=== PATIENT | female | born 1975 | race Caucasian/White ===

== ENCOUNTER 2016-11-18 18:15 | Emergency (ER) | payer OTHER ==
[~2016-11-18] VITALS: Ht 170.2 cm; Wt 136.4 kg
[2016-11-18 18:21] VITALS: BP 132/74; PULSE 102; RESP 16; O2SAT 99
[2016-11-18 19:30] LABS: BASOPHILS % (AUTO) 0.3 % (0-3); EOSINOPHILS % (AUTO) 2.3 % (0-5); Mean Corpuscular Hemoglobin 28.1 pg (27.0-35.0); Mean Corpuscular Volume 85.1 fL (81-100); NEUTROPHILS % (AUTO) 54.7 % (40-74); Platelet Count 290 bil/L (150-400)
[2016-11-18 19:51] LABS: Magnesium 1.8 mg/dL (1.6-2.6)
--- NOTE | 2016-11-18 20:26 | DRSVH ---
PROCEDURE: X-RAY ACUTE ABDOMINAL SERIES ([id number]) INDICATIONS: pain TECHNIQUE: One view chest and two views of the abdomen were acquired. COMPARISON: None. FINDINGS: Surgical changes and devices: Cervical fixation hardware is grossly intact. Surgical clip is projecte d over the left sacral ala. Chest: Lungs are clear. Heart size is normal. No pleural effusions. No pneumoperitoneum. Abdomen: Bowel gas pattern is normal. No suspicious calcifications. Visualized solid organ contour s appear normal. Bones: No suspicious bony lesions. IMPRESSION: No acute cardiopulmonary or intra-abdominal findings. Dictated by: Edwina Painter M.D. on 11/18/2016 at 20:23 Approved by: Edwina Painter M.D. on 11/18/2016 at 20:24
--- NOTE | 2016-11-18 21:02 | ED.REPORT ---
HPI-Abd Pain F 40 and Over Date of Service Nov 18, 2016 ED Provider: Dr. Mitesh Jimenez M.D. A 41 year old female with a medical history including ventral hernia and diverticulitis s/p colon resection presents to the ED with lower abdominal pain onset two weeks ago. The pain is exacerbated with laying down and eating and has gradually worsened since onset, with radiation across her abdomen. Associated symptoms include nausea, vomiting, foul-smelling belches, and chills. No groundwater/Giardia exposure. The patient denies diarrhea, constipation, melena, or hematochezia. She has been treated as an outpatient since onset with Cipro and Flagyl for diverticulitis. Nursing Notes Stated Complaint: DIVERTICULITIS-SENT BY Chief Complaint: Female Abdominal Pain Nursing Notes Reviewed: Yes Allergies: Coded Allergies: morphine (Verified Allergy, Severe, delirium, 11/18/16) ertapenem (Verified Allergy, Intermediate, migraine, 11/18/16) Scheduled Omeprazole (Omeprazole) 20 Mg Tablet.dr 20 MG PO BID Ondansetron ODT (Ondansetron ODT) 8 Mg Tab.rapdis 8 MG PO QID Scheduled PRN oxyCODONE-Acetaminophen 5-325 mg (oxyCODONE-Acetaminophen 5-325 mg) 1 Each Tablet 1-2 TAB PO Q6H PRN PRN For Pain General Time Seen by MD: 21:01 Chief Complaint Abdominal pain Hx Obtained From: Patient Arrived By: Walk-in Sudden in Onset?: Yes Onset Occurred: More than a week ago... (2 weeks) Symptom Duration: Since onset Progression since Onset: Gradually worsening Location: : Abdomen lower Quality: Painful Severity: Current: Moderate Severity: Maximum: Moderate Associated with: Reports: Nausea, Vomiting, Denies: Fever, Hematochezia, Melena Exacerbated by: Eating, Supine Pertinent Negative: Relieved by nothing Context Related History: Reports: Abdominal surgery, Diverticulosis Recent Healthcare: Recent doctor visit Similar Sx Previous: Yes Past Medical History Past Medical History Diverticulitis Ventral hernia Past Surgical History Ventral hernia repair with mesh Colon resection with colostomy Take down of colostomy Smoking History Unknown if Ever Smoker Social History Other Social History: Good social support, Ambulatory Status Independent Review of Systems + Foul smelling belches Constitutional: Reports: Chills, Denies: Fever Respiratory: Denies: Non-productive cough, Shortness of breath GI: Reports: Abdominal pain (Lower), Nausea, Vomiting, Denies: Constipation, Diarrhea, Hematochezia, Melena Complete sys rev & neg: except as marked. Physical Exam Vital Signs Vital Signs (First) Date Time Temp Pulse Resp B/P Pulse Ox O2 Delivery O2 Flow Rate FiO2 11/18/16 18:21 36.2 102 16 132/74 99 11/18/16 21:03 Room Air 11/18/16 23:23 2 Initial VS: Reviewed Head / Eyes: Atraumatic, Normocephalic ENT: Conjunctiva normal, No scleral icterus Neck: Supple, Full range of motion Extremities: Vascular intact, Neuro intact, No swelling Skin: Warm, Dry, No cyanosis Neurologic: Alert, Oriented, Nonfocal Psychiatric: Mood/affect normal, Behavior normal, Normal thought content General/Constitutional: Awake, Alert, No acute distress Distress / Hydration: Positive: Dehydration mild Appearance / Presentation: Positive: Obese, morbidly Respiratory / Chest: Breath sounds NL, Breath sounds = bilat, No respiratory distress Cardiovascular: Heart rate NL, Regular rhythm, Heart sounds NL Abdomen: Soft Tenderness/Guarding/Rebound: Positive: Tender epigastric Mildly tender under ribs bilaterally Obese Interpretation & Diagnostics US GALLBLADDER: CONCLUSION: No specific acute abnormality. There is borderline dilation of the common bile duct with mild distention of the gallbladder. Correlate with laboratory data to determine if further evaluation is indicated. Transmitted to ED by radiologist Miguel Oviedo M.D. at 11/19/2016 - 12:36:01 AM [facility] Lab Results Interpretation Result Diagram: 11/18/16192111/18/161921 Test 11/18/16 19:22 11/18/16 23:51 White Blood Count 12.3th/mm3 (3.8-10.1) Red Blood Count 5.45mil/mm3 (3.90-5.20) Hemoglobin 15.3g/dL (12.0-15.6) Hematocrit 46.4% (35.0-46.0) Mean Corpuscular Volume 85.1fL (81-100) Mean Corpuscular Hemoglobin 28.1pg (27.0-35.0) Mean Corpuscular Hemoglobin Concent 33.0% (32.0-37.0) Red Cell Distribution Width 13.2% (12.3-15.4) Platelet Count 290bil/L (150-400) Neutrophils (%) (Auto) 54.7% (40-74) Lymphocytes (%) (Auto) 33.5% (14-46) Monocytes (%) (Auto) 9.0% (4-12) Eosinophils (%) (Auto) 2.3% (0-5) Basophils (%) (Auto) 0.3% (0-3) Sodium Level 139mEq/L (134-144) Potassium Level 4.7mEq/L (3.5-5.2) Chloride Level 99mEq/L (97-108) Carbon Dioxide Level 28mmol/L (18-29) Blood Urea Nitrogen 14mg/dL (6-24) Creatinine 0.73mg/dL (0.57-1.00) Estimat Glomerular Filtration Rate 125mL/min (>59) Glucose Level 95mg/dL (60-99) Calcium Level 9.3mg/dL (8.5-10.1) Magnesium Level 1.8mg/dL (1.6-2.6) Total Bilirubin 0.2mg/dL (0.0-1.2) Aspartate Amino Transf (AST/SGOT) 21U/L (0-50) Alanine Aminotransferase (ALT/SGPT) 22U/L (0-32) Alkaline Phosphatase 57U/L (25-150) Total Protein 7.7g/dL (6.4-8.4) Albumin 3.7g/dL (3.4-5.0) Lipase 158U/L (13-60) Hold Gutierrez Top Tube Received (Received) Urine Color Yellow (YELLOW) Urine Appearance Clear (CLEAR,HAZY) Urine pH 6.0 (5.0-8.0) Urine Specific [place] 1.010 (1.003-1.035) Urine Protein Negativemg/dL (NEG,TRACE) Urine Glucose (UA) Negativemg/dL (NEGATIVE) Urine Ketones Negativemg/dL (NEGATIVE) Urine Occult Blood Negative (NEGATIVE) Urine Nitrite Negative (NEGATIVE) Urine Bilirubin Negative (NEGATIVE) Urine Urobilinogen Normalmg/dL (NORMAL) Urine Leukocyte Esterase Negative (NEGATIVE) Urine RBC 0-2/hpf (0-2) Urine WBC 0-5/hpf (0-5) Urine Epithelial Cells Moderate/hpf (NONE-MOD) Urine Crystals None seen (NONE SEEN) Urine Bacteria Few/hpf (NONE-FEW) Urine Hyaline Casts None/lpf (NONE) Urine Granular Casts None seen (NONE SEEN) Urine Waxy Casts None seen (NONE SEEN) Urine Red Blood Cell Casts None seen (NONE SEEN) Urine White Blood Cell Casts None seen (NONE SEEN) Urine Mucus Present (None Seen) Urine Trichomonas None seen (NONE SEEN) Urine Yeast None (NONE SEEN) Urinalysis Comment None Urine Culture Reflexed Not indicated Hold Urine Received (Received) X-Ray Abdominal Interpretation ACUTE ABDOMINAL SERIES: IMPRESSION: No acute cardiopulmonary or intra-abdominal findings. Dictated by: Edwina Painter M.D. on 11/18/2016 at 20:23 Interpretation / Wet Read by: Interpret - Radiologist CT Abd / Pelvis Interpretation CONCLUSION: No specific acute abnormality. Mild diverticulosis. Transmitted to ED by Miguel Oviedo M.D. at 11/18/2016 - 10:47:02 PM PST Study type: Abdominal CT IV contrast Interpretation / Wet Read by: Interpret - Radiologist Re-Eval/Medical Decision Med Decision/Clinical Course 41-year-old presents with abdominal discomfort initially interpreted as diverticulitis. CT today shows no evidence of diverticulitis despite her increasing pain. She has elevated lipase at 157. Remainder of LFTs are unremarkable. CT shows no pseudocyst or other signs of severe pancreatitis. Ultrasound was obtained and no gallstones seen and no obstruction seen. Bile duct prominent without obvious obstructing stone. Discharge now for home care with Percocet and Zofran and omeprazole clear liquid slow progressive diet and follow up with PCP. Re-Evaluation/Progress : Time of Eval: 01:55 Patient Status: Condition improved Re-Evaluation/Progress Note: Discussed with patient x-ray, CT, US, and lab results, diagnosis, and plan for discharge. Follow-up and return to the ER instructions given. Patient agrees with plan for care and all questions were addressed. Counseled Regarding: Diagnosis, Lab results, Need for follow-up, When/why to return to ED Discharge & Departure Shift Change Sign-Out Response to Therapy: Improved Primary Impression: Pancreatitis Chronicity: acute Pancreatitis type: unspecified pancreatitis type Qualified Code: K85.9 - Acute pancreatitis, unspecified Disposition: Home Discharge Condition All VS Reviewed: Yes Condition: Improved Patient Instructions: Clear Liquid Diet (ED), Low Fat Diet (ED), Pancreatitis ( ED) Additional Instructions: Stop your antibiotics. Start omeprazole twice daily. Clear liquids only. Pedialyte would be the best choice. Gatorade or similar electrolyte replacement fluids are also acceptable. Advance slowly through light soupy foods, and slowly add starches. Avoid fats for at least two weeks. Avoid meat and butter and creamy items for several weeks. Absolute no alcohol for two months minimum. Moderate your caffeine intake to a cup of coffee daily. Percocet sparingly for pain. Zofran up to four times daily if needed for nausea. Return if pain is worse despite treatment. Return if you are unable control vomiting or have any other new symptoms of concern. Referrals: OTHER,PHYSICIAN (PCP) Scribe Attestation Portions of this note were transcribed by Liz Choi. I, Dr. Jimenez, personally performed the history, physical exam, and medical decision-making; I reviewed and confirmed the accuracy of the information in the transcribed note. Signed by: Ange Bahena, 11/19/2016, 02:25 Mitesh Jimenez MD Nov 18, 2016 21:01 LIZ CHOI Nov 18, 2016 22:21
[2016-11-18 21:03] VITALS: BP 107/50; PULSE 87; O2SAT 92
[2016-11-18] MEDS ORDERED: Ondansetron 2 mg/mL 2 mL Inj IVPUSH ONE (22:05)
[2016-11-18] MEDS: HYDROmorphone 1 mg/mL Inj IVPUSH PRN ×2 (22:15→23:07)
[2016-11-18 23:23] VITALS: BP 106/63; PULSE 84; RESP 14; O2SAT 95
[2016-11-18] MEDS ORDERED: Pantoprazole 4 mg/mL 10 mL Inj IVPUSH ONE (23:30)
[2016-11-19] LABS: APPEARANCE,URINE CLEAR (CLEAR,HAZY); COLOR,URINE YELLOW (YELLOW); OCCULT BLOOD,URINE NEGATIVE (NEGATIVE); UROBILINOGEN,URINE NORMAL (NORMAL)
[2016-11-19] MEDS: HYDROmorphone 1 mg/mL Inj IVPUSH PRN (01:09)
[2016-11-19] MEDS ORDERED: _Ondansetron ODT 4 mg Tablet PO PRN (02:05)
[2016-11-19] MEDS ORDERED: _oxyCODONE/APAP 5-325 mg Tablet PO PRN (02:05)
[2016-11-19] MEDS ORDERED: OXYC1TAB24 PO (02:07)
[2016-11-19] MEDS ORDERED: OMEP20TA86 PO (02:07)
[2016-11-19] MEDS ORDERED: ONDA8TAB10 PO (02:07)
[2016-11-19 02:17] VITALS: BP 137/71; PULSE 84; RESP 20; O2SAT 93
--- NOTE | 2016-11-19 08:57 | DRSVH ---
PROCEDURE: US ABDOMEN, LIMITED ([id number]) INDICATIONS: pancreatitis ?gallstones/obstruction TECHNIQUE: Real-time focused scanning was performed of the abdomen, with image documentation. COMPARISON: [facility], CT, CT ABD PELVIS W CON, 11/18/2016, 22:14. FINDINGS: Liver is diffusely increased in echogenicity. No focal hepatic abnormalities identified. Normal hepatic size. Small amount of gallbladder sludge present otherwise normal gallbladder. Comm on hepatic duct upper limits of normal in size measuring 7 mm. IMPRESSION: 1. Increased hepatic echogenicity noted likely related to fatty infiltration of the liver but other s ources of hepatocellular disease cannot be excluded. Recommend clinical correlation. 2. Gallbladder sludge. Dictated by: Kj Stevens RRA Interpreted: Taisha Palacios MD on 11/19/2016 at 8:55 Transcribed by: ESA on 11/19/2016 at 8:56 Approved by: Taisha Palaicos MD, PhD on 11/19/2016 at 17:14
--- NOTE | 2016-11-19 08:58 | DRSVH ---
PROCEDURE: CT ABDOMEN AND PELVIS WITH CONTRAST ([id number]) INDICATIONS: diverticulitis TECHNIQUE: After the administration of intravenous contrast, 5 mm thick sections acquired from the diaphragm to the symphysis. 5 mm coronal and sagittal reformats were acquired. For radiation dose reduction, the following was used: automated exposure control, adjustment of mA and/or kV according to patient siz e. COMPARISON: None. FINDINGS: Image quality: Excellent. ABDOMEN: Lung bases: Lung bases are clear. Heart size is normal. Solid organs: Liver and spleen are normal in size and enhancement. Gallbladder is within normal hernández its. Biliary system is non dilated. Pancreas enhances normally. No adrenal nodules. Kidneys demon strate normal size and enhancement, without hydronephrosis. Peritoneum and bowel: Bowel loops demonstrate normal wall thickness and caliber. Anastomotic sutures noted in the sigmoid colon. Scattered diverticula noted in the colon without evidence of diverticuli tis. No free fluid or air. The appendix is not identified, however, no inflammatory changes or free f luid are noted adjacent to the cecum. Nodes and vessels: No retroperitoneal or mesenteric adenopathy by size criteria. Aorta and inferior vena cava are normal in size. Miscellaneous: No ventral hernias. PELVIS: Genitourinary: Bladder wall thickness is normal. Miscellaneous: No inguinal hernias or adenopathy. Bones: No suspicious bony lesions. No vertebral body compression fractures. IMPRESSION: 1. No acute disease process. 2. Postsurgical changes. 3. Colonic diverticulosis without evidence of diverticulitis. 4. No free fluid or air. 5. No dilated loops of bowel. Dictated by: Taisha Palacios MD, PhD on 11/19/2016 at 8:53 Approved by: Taisha Palacios MD, PhD on 11/19/2016 at 8:56
== END 2016-11-19 02:18 | disposition home or self-care (01) ==
LOC: SED 18:15
DX: K85.90 Acute pancreatitis without necrosis or infection, unspecified (principal); Z88.5 Allergy status to narcotic agent; Z88.8 Allergy status to other drugs, medicaments and biological substances
CPT/HCPCS: 36415; 74022; 74177; 76705; 80053; 81000; 83690; 83735; 85025; 96374; 96375; 96376; 99285; J1170; J2405; Q9967

== ENCOUNTER 2016-11-22 18:22 | Emergency (ER) | payer OTHER ==
[~2016-11-22] VITALS: Ht 170.2 cm; Wt 136.4 kg
[~2016-11-22 18:22] MED LIST: OMEP20TA86 PO; ONDA8TAB10 PO; OXYC1TAB24 PO
[2016-11-22 18:28] VITALS: BP 159/113; PULSE 95; RESP 20; O2SAT 96
[2016-11-22 19:07] LABS: BASOPHILS % (AUTO) 0.1 % (0-3); EOSINOPHILS % (AUTO) 1.8 % (0-5); MONOCYTES % (AUTO) 8.1 % (4-12); Mean Corpuscular Hemoglobin 28.1 pg (27.0-35.0); Mean Corpuscular Volume 87.1 fL (81-100); NEUTROPHILS % (AUTO) 63.6 % (40-74); Platelet Count 240 bil/L (150-400)
--- NOTE | 2016-11-22 20:24 | ED.REPORT ---
HPI-Abd Pain F 40 and Over Date of Service Nov 22, 2016 ED Provider: Tiago Kaur MD A 41 year old female with a history of diverticulitis presents to the ED complaining of severe abdominal pain onset this morning when the patient woke up. Pain is greatest in lower abdomen, is rated 8/10, radiates outwards, and is exacerbated when she curls her abdomen. The pain is described as rolling and grinding. It has gotten progressively worse throughout the day. The patient visited the ED 7 days ago and was diagnosed with pancreatitis, has kept a clear liquid diet as instructed, and was prescribed Percocet which she has used on and off for the last few days. She took a dosage this morning with no relief of abdominal pain. She takes no other medications. Her current pain feels like the pain experienced 7 days ago. Associated symptoms include foul smelling eructation, vomiting, and swollen feet which she has only experienced in the past while . She had a BM in the ED which was described as burning and oily. She has not experienced any dysuria. She denies any history of pancreatitis before her last ED visit. She reports having surgery to treat diverticulitis in the past. The patient recently switched to a high fiber diet. She rarely consumes alcohol. . Nursing Notes Stated Complaint: ABDOMINAL PAIN Chief Complaint: Female Abdominal Pain Nursing Notes Reviewed: Yes (RFMicron not reconciled) Allergies: Coded Allergies: morphine (Verified Allergy, Severe, delirium, 11/22/16) ertapenem (Verified Allergy, Intermediate, migraine, 11/22/16) Scheduled Omeprazole (Omeprazole) 20 Mg Tablet.dr 20 MG PO BID Ondansetron ODT (Ondansetron ODT) 8 Mg Tab.rapdis 8 MG PO QID Scheduled PRN oxyCODONE-Acetaminophen 5-325 mg (oxyCODONE-Acetaminophen 5-325 mg) 1 Each Tablet 1-2 TAB PO Q6H PRN PRN For Pain General Time Seen by MD: 20:14 Chief Complaint Abdominal pain Hx Obtained From: Patient Arrived By: Walk-in Sudden in Onset?: Yes Onset Occurred: 9 - 12 hours ago Symptom Duration: Since onset Location: : Abdomen lower Recent Healthcare: Recent doctor visit (Was in the ED 7 days ago) Similar Sx Previous: Yes Past Medical History Past Medical History Notes: Patient was seen in the emergency 11/18/2016-for abdominal pain, diagnosed with pancreatitis based on lipase of 158, CT abdomen and pelvis without acute findings Past Medical History Diverticulitis Ventral hernia Dr. Nelson Pineda at [facility] is her PCP. Past Surgical History Ventral hernia repair with mesh Colon resection with colostomy Take down of colostomy Smoking History Unknown if Ever Smoker Social History Other Social History: Good social support, Ambulatory Status Independent Review of Systems foul smelling eructation. swollen feet. GI: Reports: Abdominal pain, Diarrhea, Vomiting Female: Denies: Dysuria Complete sys rev & neg: except as marked. Physical Exam Vital Signs Vital Signs (First) Date Time Temp Pulse Resp B/P Pulse Ox O2 Delivery O2 Flow Rate FiO2 11/22/16 18:28 36.0 95 20 159/113 96 Room Air Initial VS: Reviewed, Vital signs normal (mild HTN) General/Constitutional: Awake, Alert Appearance / Presentation: Positive: Obese Not appearing in severe distress. Respiratory / Chest: Atraumatic, Breath sounds NL, Breath sounds = bilat, No respiratory distress, No rales, No rhonchi, No wheezing Cardiovascular: Heart rate NL, Regular rhythm, Heart sounds NL, No gallop, No murmurs, No rubs Abdomen: Atraumatic Abdomen is not particularly clinically tender. I do not appreciate peritonitis, but patient persists that she is in severe pain. Back: Atraumatic, Full range of motion Head / Eyes: Atraumatic, Normocephalic, PERRL, EOMI ENT: Atraumatic, Mucous membranes moist Skin: Warm, Dry Neurologic: Oriented X3, Speech NL Neck: Atraumatic, Full range of motion Upper Extremity / MS: Atraumatic, Full range of motion Wrist / Hand: Atraumatic, Full range of motion Lower Extremity / Pelvis / MS: Atraumatic, Full range of motion Interpretation & Diagnostics Interpretation & Diagnostics: Labs from visit 11/18/2016 were reviewed-lipase was marginally elevated 158, CT scan abdomen and pelvis also reviewed Lab Results Interpretation Result Diagram: 11/22/16 1855 11/22/16 1855 Test 11/22/16 18:55 11/22/16 20:40 White Blood Count 9.0th/mm3 (3.8-10.1) Red Blood Count 4.73mil/mm3 (3.90-5.20) Hemoglobin 13.3g/dL (12.0-15.6) Hematocrit 41.2% (35.0-46.0) Mean Corpuscular Volume 87.1fL (81-100) Mean Corpuscular Hemoglobin 28.1pg (27.0-35.0) Mean Corpuscular Hemoglobin Concent 32.3% (32.0-37.0) Red Cell Distribution Width 13.1% (12.3-15.4) Platelet Count 240bil/L (150-400) Neutrophils (%) (Auto) 63.6% (40-74) Lymphocytes (%) (Auto) 26.3% (14-46) Monocytes (%) (Auto) 8.1% (4-12) Eosinophils (%) (Auto) 1.8% (0-5) Basophils (%) (Auto) 0.1% (0-3) Sodium Level 139mEq/L (134-144) Potassium Level 4.3mEq/L (3.5-5.2) Chloride Level 100mEq/L (97-108) Carbon Dioxide Level 27mmol/L (18-29) Blood Urea Nitrogen 11mg/dL (6-24) Creatinine 0.64mg/dL (0.57-1.00) Estimat Glomerular Filtration Rate 146mL/min (>59) Glucose Level 103mg/dL (60-99) Calcium Level 8.5mg/dL (8.5-10.1) Magnesium Level 2.0mg/dL (1.6-2.6) Total Bilirubin 0.2mg/dL (0.0-1.2) Aspartate Amino Transf (AST/SGOT) 21U/L (0-50) Alanine Aminotransferase (ALT/SGPT) 21U/L (0-32) Alkaline Phosphatase 53U/L (25-150) Total Protein 6.9g/dL (6.4-8.4) Albumin 3.6g/dL (3.4-5.0) Lipase 20U/L (13-60) Hold Gutierrez Top Tube Received (Received) Urine Color Yellow (YELLOW) Urine Appearance Hazy (CLEAR,HAZY) Urine pH 6.5 (5.0-8.0) Urine Specific [place] 1.015 (1.003-1.035) Urine Protein Negativemg/dL (NEG,TRACE) Urine Glucose (UA) Negativemg/dL (NEGATIVE) Urine Ketones Negativemg/dL (NEGATIVE) Urine Occult Blood Small (NEGATIVE) Urine Nitrite Negative (NEGATIVE) Urine Bilirubin Negative (NEGATIVE) Urine Urobilinogen Normalmg/dL (NORMAL) Urine Leukocyte Esterase Negative (NEGATIVE) Urine RBC 0-2/hpf (0-2) Urine WBC 0-5/hpf (0-5) Urine Epithelial Cells Moderate/hpf (NONE-MOD) Urine Crystals None seen (NONE SEEN) Urine Bacteria Few/hpf (NONE-FEW) Urine Hyaline Casts None/lpf (NONE) Urine Granular Casts None seen (NONE SEEN) Urine Waxy Casts None seen (NONE SEEN) Urine Red Blood Cell Casts None seen (NONE SEEN) Urine White Blood Cell Casts None seen (NONE SEEN) Urine Mucus None seen (None Seen) Urine Trichomonas None seen (NONE SEEN) Urine Yeast None (NONE SEEN) Urinalysis Comment None Urine Culture Reflexed Not indicated Lab Results Interpretation: CBC normal CMP normal Lipase is normal at 28, down from elevated [address] Abd / Pelvis Interpretation IMPRESSION: 1. No acute process. No change compared to 2.28.17. 2. Appendix not seen. No evidence of appendicitis. Dictated by: Ayleen Roca M.D. on 11/22/2016 at 21:34 Approved by: Ayleen Roca M.D. on 11/22/2016 at 21:35 Interpretation / Wet Read by: Interpret - Radiologist Re-Eval/Medical Decision Med Decision/Clinical Course This is a 41-year-old female presents complaining of worsening abdominal pain. She was seen in the emergency Department recent weeks and diagnosed with "pancreatitis" on a basis of a lipase of around 150, and a negative CT scan. Apportionment okay, now presents complaining of terrible, uncontrolled, severe lower abdominal pain. She did try to advance her diet and is concerned about pancreatitis still, but is very atypical symptoms. She denies alcohol use. She now reports increasing terrible lower abdominal pain and this brought her back. She is afebrile, obese-but not in any overt extremities. I do not appreciate clear-cut tenderness, but patient does have a complex history of severe diverticulitis requiring surgeries before-is insistent that this is terrible pain, and is highly inserted. Labs were obtained-they are normal. Today she does not have a leukocytosis, her lipase is now normal, there are no markers of a dangerous condition, but the patient remains entirely concerned, and when it went to discuss this and my attempt to avoid repeat CT imaging, the patient is quite insistent remains highly concerned and therefore requests repeat CT imaging, given S a CT scan was ordered. The CT scan however was normal on evaluation with no signs of acute pathology identified. The patient did receive some titrated pain medicine is clearly improved on reexamination. Additionally her LOCO report came in looks like the patient's several outside hospital visits for abdominal pain, one is listed as positive for diverticulitis of the details are not known. I were now she has had 2 visits here, and while she was labeled with pancreatitis before, her findings are fairly minimal. At this point have explained the exact cause of the patient's pain is unknown. I dangerous cause has not been identified. I have recommended close follow-up with her primary care physician down in [place], and the patient is discharged in improved condition. I recommended ibuprofen, but not funny indication for controlled substances in this setting at this stage. Source of Hx: Old records Re-Evaluation/Progress : Time of Eval: 22:31 Re-Evaluation/Progress Note: Rechecked patient, explained test results, diagnosis, and plan for discharge. Patient understands and agrees with the plan. All questions addressed. Differential Diagnosis: Positive: Acute abdominal pain, Negative: Bowel obstruction, Cholangitis, Diverticular disease, Ectopic preg ruptured, Ectopic , Esophageal rupture, Gun shot wound abdomen, Hepatitis, Intrauterine , Pancreatitis, Peritonitis, Pyelonephritis, Stab wound abdomen Counseled Regarding: Diagnosis, Lab results, Need for follow-up, When/why to return to ED Discharge & Departure Shift Change Sign-Out Response to Therapy: Improved, Discussed Primary Impression: Abdominal pain Abdominal location: lower abdomen Qualified Code: R10.30 - Lower abdominal pain, unspecified Disposition: Home Discharge Condition All VS Reviewed: Yes Condition: Improved Additional Instructions: 1. A dangerous or definitive cause of the abdominal pain was not identified. 2. Your blood tests tonight were normal-and this includes her pancreas enzymes called the lipase which is backto normal. (It was mildly elevated at 158 previously, but is back to 20 today) 3. You had a repeat CT scan today-this too did not show a dangerous cause of the pain. There were no findings of diverticulitis, pancreatitis, or other concerning/ dangerous cause. 4. Advance diet as tolerated. 5. Take ibuprofen 400-800mg three times a day for pain as needed. 6. Call your doctor in [place] on Thursday to schedule a follow up appointment. 7.Return if new or worsening symptoms Referrals: [facility] (PCP) Ange Attestation Portions of this note were transcribed by Benoit Mckinley. I, Dr. Kaur personally performed the history, physical exam and medical decision-making; I reviewed and confirmed the accuracy of the information in the transcribed note. Signed by: Ange Kimble, 11/23/2016and 0151. copies to: [facility] Matthew F MD Nov 22, 2016 20:24 Benoit Mckinley Nov 22, 2016 20:32
[2016-11-22] MEDS ORDERED: 0.9% Sodium Chloride 1,000 ML IV ONE (20:35)
[2016-11-22] MEDS ORDERED: HYDROmorphone 1 mg/mL Inj IVPUSH ONE ×2 (20:35→21:50)
[2016-11-22] MEDS ORDERED: Promethazine Inj 25 MG in Dextrose 5%-Pha MIX 50 ML IV ONE (20:35)
[2016-11-22 21:16] LABS: APPEARANCE,URINE HAZY (CLEAR,HAZY); COLOR,URINE YELLOW (YELLOW); OCCULT BLOOD,URINE SMALL (NEGATIVE); PH,URINE 6.5 (5.0-8.0); UROBILINOGEN,URINE NORMAL (NORMAL)
--- NOTE | 2016-11-22 21:37 | DRSVH ---
PROCEDURE: CT ABDOMEN AND PELVIS WITH CONTRAST ([id number]) INDICATIONS: abd pain TECHNIQUE: After the administration of intravenous contrast, 5 mm thick sections acquired from the diaphragm to the symphysis. 5 mm coronal and sagittal reformats were acquired. For radiation dose reduction, the following was used: automated exposure control, adjustment of mA and/or kV according to patient lily byrne. COMPARISON: [facility], [place], ABDOMEN LTD, 11/18/2016, 23:53. [facility], CT, CT ABD PELVIS W CON, 11/18/2016, 22:14. FINDINGS: Image quality: Excellent. ABDOMEN: Lung bases: Lung bases are clear. Heart size is normal. Solid organs: Liver and spleen are normal in size and enhancement. Gallbladder is within normal hernández its. Biliary system is non dilated. Pancreas enhances normally. No adrenal nodules. Kidneys demon strate normal size and enhancement, without hydronephrosis. Peritoneum and bowel: Bowel loops demonstrate normal wall thickness and caliber. No free fluid or a ir. Appendix not seen. No evidence of appendicitis. Nodes and vessels: No retroperitoneal or mesenteric adenopathy by size criteria. Aorta and inferior vena cava are normal in size. Miscellaneous: No ventral hernias. Anterior pelvic wall hernia repair has been performed , as before . PELVIS: Genitourinary: Bladder wall thickness is normal. Miscellaneous: No inguinal hernias or adenopathy. Bones: No suspicious bony lesions. No vertebral body compression fractures. IMPRESSION: 1. No acute process. No change compared to 11.18.16. 2. Appendix not seen. No evidence of appendicitis. Dictated by: Ayleen Roca M.D. on 11/22/2016 at 21:34 Approved by: Ayleen Roca M.D. on 11/22/2016 at 21:35
[2016-11-22 23:06] VITALS: BP 113/71; PULSE 65; RESP 14; O2SAT 93
== END 2016-11-22 22:54 | disposition home or self-care (01) ==
LOC: SED 18:22
DX: R10.30 Lower abdominal pain, unspecified (principal); R14.2 Eructation; R11.10 Vomiting, unspecified; M79.89 Other specified soft tissue disorders; Z98.890 Other specified postprocedural states; Z88.5 Allergy status to narcotic agent; Z88.8 Allergy status to other drugs, medicaments and biological substances
CPT/HCPCS: 36415; 74177; 80053; 81000; 83690; 83735; 85025; 96374; 96375; 96376; 99285; J1170; J2550; J7030; Q9967